=== PATIENT | female | born 1990 | race American Indian/Alaskan Native ===

== ENCOUNTER 2017-11-04 09:53 | Emergency (ER) | payer OTHER ==
[2017-11-04] MEDS ORDERED: ZOFRAN ONE (12:16)
[2017-11-04 12:17] LABS: Bilirubin,Urine NEG (Negative); Blood,Urine NEG (Negative); Color,Urine Yellow (Yellow); Mucus,Urine 3+ /HPF
[2017-11-04] MEDS ORDERED: NACL 0.9% 1000 ML 1,000 ML IV ONE ×2 (12:17→12:27)
[2017-11-04 12:18] LABS: HCG Qualitative,Urine Positive (Negative)
[2017-11-04] MEDS ORDERED: ZOFRAN IV ONE (12:18)
[2017-11-04] MEDS ORDERED: TYLENOL PO ONE (12:25)
[2017-11-04] MEDS ORDERED: PEPCID IV ONE (12:25)
--- NOTE | 2017-11-04 12:26 | Emergency Department Report ---
ED Female HPI - General Chief complaint: Abdominal Pain Stated complaint: THROWING UP/STOMACH PAIN Time Seen by Provider: 11/04/17 12:17 Source: patient, RN notes reviewed Mode of arrival: Ambulatory Limitations: No Limitations - History of Present Illness Initial comments: This is a 27-year-old female who is unknown to this provider previously. She is 3, para 1, status post elective termination of . She reports her last menstrual period is September 12. She initially did not know she was . She presents to the ER with a complaint of initially painless nonbloody, nonbilious emesis. She thinks that in the past day and a half she is vomited 20 times. She has abdominal wall pain from vomiting. The pain is achy, crampy , sharp, increases with palpation and decreases with rest. She denies vaginal discharge and urinary symptoms. She thinks that she is lost some weight unintentionally. MD Complaint: pelvic pain, other Severity: mild Quality: cramping Consistency: constant Improves with: other (rest) Worsens with: movement Are you Now?: Yes Associated Symptoms: abdominal pain, nausea/vomiting, loss of appetite, weakness. denies: vaginal discharge, vaginal bleeding, fever/chills, headaches , dysuria, hematuria, rash, seizure, shortness of breath, syncope - Related Data Sexually active: Yes Previous Rx's Medication Instructions Recorded Last Taken Type Doxylamine Succinate/Vit B6 1 each PO QHS PRN #30 tablet. 11/04/17 Unknown Rx [Lani Mantilla 10-10 mg Tablet] Mili Root [Mili] 250 mg PO QID PRN #30 capsule 11/04/17 Unknown Rx Ondansetron [Zofran Odt] 4 mg PO Q8HR PRN #20 tab.rapdis 11/04/17 Unknown Rx Vit Calc,Iron,Folic 1 each PO QDAY #30 tablet 11/04/17 Unknown Rx [ Vitamins] Allergies Allergy/AdvReac Type Severity Reaction Status Date / Time No Known Allergies Allergy Verified 11/04/17 10:36 ED Review of Systems ROS: Stated complaint: THROWING UP/STOMACH PAIN Other details as noted in HPI Constitutional: malaise Eyes: denies: eye discharge ENT: denies: epistaxis Respiratory: denies: cough Cardiovascular: denies: chest pain Gastrointestinal: abdominal pain, nausea, vomiting Genitourinary: denies: dysuria Musculoskeletal: arthralgia Neurological: weakness Psychiatric: anxiety ED Past Medical Hx - Past Medical History Previous Medical History?: No - Surgical History Past Surgical History?: No - Social History Smoking Status: Never Smoker Substance Use Type: None - Medications Home Medications: Home Medications Medication Instructions Recorded Confirmed Last Taken Type Doxylamine Succinate/Vit B6 1 each PO QHS PRN #30 tablet.dr 11/04/17 Unknown Rx [Diclegis Dr 10-10 mg Tablet] Mili Root [Mili] 250 mg PO QID PRN #30 capsule 11/04/17 Unknown Rx Ondansetron [Zofran Odt] 4 mg PO Q8HR PRN #20 tab.rapdis 11/04/17 Unknown Rx Vit Calc,Iron,Folic 1 each PO QDAY #30 tablet 11/04/17 Unknown Rx [ Vitamins] ED Physical Exam - General Limitations: No Limitations General appearance: alert, anxious - Head Head exam: Present: atraumatic, normocephalic - Eye Eye exam: Present: normal appearance, EOMI. Absent: nystagmus - ENT ENT exam: Present: normal exam, normal orophraynx, mucous membranes moist, normal external ear exam - Neck Neck exam: Present: normal inspection, full ROM. Absent: tenderness, meningismus - Respiratory Respiratory exam: Present: normal lung sounds bilaterally. Absent: respiratory distress - Cardiovascular Cardiovascular Exam: Present: regular rate, normal rhythm, normal heart sounds. Absent: bradycardia, tachycardia, irregular rhythm, systolic murmur, diastolic murmur, rubs, gallop - GI/Abdominal GI/Abdominal exam: Present: soft, normal bowel sounds. Absent: distended, tenderness, guarding, rebound, rigid, pulsatile mass - Extremities Exam Extremities exam: Present: normal inspection, full ROM, normal capillary refill , other (2+ pulses noted in the bilateral upper, lower extremities. Compartments soft. No long bony tenderness. The pelvis is stable.). Absent: pedal edema, joint swelling, calf tenderness - Back Exam Back exam: Present: normal inspection, full ROM. Absent: tenderness, CVA tenderness (R), paraspinal tenderness, vertebral tenderness - Neurological Exam Neurological exam: Present: alert, oriented X3, CN II-XII intact, normal gait, other (Extraocular movements intact. Tongue midline. No facial droop. Facial sensation intact to light touch in the V1, V2, V3 distribution bilaterally. 5 and 5 strength in 4 extremities.. Sensation is intact to light touch in 4 extremities.). Absent: motor sensory deficit - Psychiatric Psychiatric exam: Present: anxious - Skin Skin exam: Present: warm, dry, intact, normal color. Absent: rash ED Course Vital Signs 11/04/17 10:36 Temperature 97.7 F Pulse Rate 83 Respiratory 16 Rate Blood Pressure 120/73 O2 Sat by Pulse 97 Oximetry - Reevaluation(s) Reevaluation #1: 11/04/17 13:23 Differential diagnosis, including but not limited to: , nausea and vomiting of , hyperemesis Assessment and plan: 27-year-old female with unopposed nausea and vomiting, found to be . Urinalysis demonstrates ketones. Patient is currently texting on a cellular phone does not actively vomiting. Type and screen is Rh+. HCG is pending. Pelvic ultrasound is pending. Patient will be given IV fluids, pain medication, nausea medication. Reevaluation #2: 11/04/17 14:37 Belly soft on repeat exam. Ultrasound confirms intrauterine . Patient is encouraged to discontinue cannabis consumption and/or cannabis exposure. She will be discharged with nausea medication, vitamins, instructions to follow up with outpatient gynecology. Urinalysis is appreciated , she has no urinary symptoms and no bacteria. She can therefore follow up with outpatient gynecology for this. ED Medical Decision Making - Lab Data Result diagrams: 11/04/17 12:30 11/04/17 12:30 Vital Signs 11/04/17 10:36 Temperature 97.7 F Pulse Rate 83 Respiratory 16 Rate Blood Pressure 120/73 O2 Sat by Pulse 97 Oximetry Temp Pulse Resp BP Pulse Ox 97.7 F 83 16 120/73 97 11/04/17 10:36 11/04/17 10:36 11/04/17 10:36 11/04/17 10:36 11/04/17 10:36 Labs 11/04/17 11/04/17 11/04/17 12:26 12:30 12:30 WBC 10.9 RBC 4.57 Hgb 12.7 Hct 39.0 MCV 86 MCH 28 MCHC 33 RDW 14.7 Plt Count 300 Sodium 137 Potassium 3.7 Chloride 95.6 L Carbon Dioxide 23 Anion Gap 22 BUN 9 Creatinine 0.6 L Estimated GFR > 60 BUN/Creatinine Ratio 15 Glucose 88 Calcium 9.9 Magnesium 1.90 Total Creatine Kinase 253 H Urine Color Urine Turbidity Urine pH Ur Specific [place] Urine Protein Urine Glucose (UA) Urine Ketones Urine Blood Urine Nitrite Urine Bilirubin Urine Urobilinogen Ur Leukocyte Esterase Urine WBC (Auto) Urine RBC (Auto) U Epithel Cells (Auto) Urine Mucus Urine HCG, Qual Blood Type O POSITIVE Antibody Screen Negative 11/04/17 Unknown WBC RBC Hgb Hct MCV MCH MCHC RDW Plt Count Sodium Potassium Chloride Carbon Dioxide Anion Gap BUN Creatinine Estimated GFR BUN/Creatinine Ratio Glucose Calcium Magnesium Total Creatine Kinase Urine Color Yellow Urine Turbidity Clear Urine pH 6.0 Ur Specific [place] 1.029 Urine Protein 100 mg/dl Urine Glucose (UA) Neg Urine Ketones 80 Urine Blood Neg Urine Nitrite Neg Urine Bilirubin Neg Urine Urobilinogen 2.0 Ur Leukocyte Esterase Mod Urine WBC (Auto) 60.0 H Urine RBC (Auto) 17.0 U Epithel Cells (Auto) 4.0 Urine Mucus 3+ Urine HCG, Qual Positive A Blood Type Antibody Screen - Radiology Data Radiology results: pending Critical care attestation.: If time is entered above; I have spent that time in minutes in the direct care of this critically ill patient, excluding procedure time. ED Disposition Clinical Impression: Nausea and vomiting during Disposition: DC-01 TO HOME OR SELFCARE Is pt being admited?: No Does the pt Need Aspirin: No Condition: Stable Instructions: Hyperemesis Gravidarum (ED) Additional Instructions: Urine culture was ordered today. Follow-up with a staff therapist within the next 5-7 days to initiate outpatient care. Have a staff therapist contact the medical records department to obtain culture results. Urine screening indicated the presence of marijuana metabolites. If patient is consuming marijuana, patient should stop, as this may be dangerous/harmful to the as well as the patient. Patient should avoid exposure to all smoke products first and second hand. Patient should avoid Motrin, ibuprofen, Naprosyn, Aleve, and says, heavy, spicy foods. Take the medications as needed/ directed. For nausea, patient should start with the diclegis, then mili, the zofran if still nauseous. Symptoms of nausea and vomiting during will likely persist during most of the . Please return to the ER right away with new pain, worsened pain, migration of pain, fevers, chills, lethargy, irritability, projectile vomiting, change in mental status, confusion, inability to tolerate liquid feeds. Referrals: PRIMARY CARE, [Primary Care Provider] - 3-5 Days [facility] [Provider Group] - 3-5 Days [facility] [Provider Group] - 3-5 Days [facility] [Provider Group] - 3-5 Days
[2017-11-04 12:46] LABS: Hemoglobin 12.7 gm/dl (10.1-14.3); Mean Corpuscular HGB Conc 33 % (30-34); Mean Corpuscular Hemoglobin 28 pg (28-32); Mean Corpuscular Volume 86 fl (79-97); Platelet Count 300 K/mm3 (140-440); Red Blood Count 4.57 M/mm3 (3.65-5.03); Red Cell Distribution Width 14.7 % (13.2-15.2)
[2017-11-04 12:52] LABS: BUN/Creatinine Ratio 15; Blood Urea Nitrogen 9 mg/dL (7-17); Calcium 9.9 mg/dL (8.4-10.2); Hemolysis Index 40
[2017-11-04] MEDS ORDERED: D5/0.45NS 1,000 ML IV SCH (13:00)
[2017-11-04 13:30] LABS: Amphetamine Screen,Urine PRESUMPTIVE NEGATIVE; Benzodiazepines Screen,Urine PRESUMPTIVE NEGATIVE; Cocaine Screen,Urine PRESUMPTIVE NEGATIVE; Methadone Screen,Urine PRESUMPTIVE NEGATIVE; Opiate Screen,Urine PRESUMPTIVE NEGATIVE
[2017-11-04 13:43] LABS: Cannabinoid Screen,Urine PRESUMPTIVE POSITIVE
[2017-11-04 14:42] VITALS: BP 121/57
--- NOTE | 2017-11-04 15:21 | Ultrasound Report ---
Pelvic and transvaginal sonography: History: , abdominal pain nausea and vomiting. Findings: Uterus measures 10.1 x 7.5 cm. There is a single intrauterine gestation. CRL fetus is 1.1 mm corresponding to 7 weeks and one day of gestation. heart rate 140 per minute. Right ovary 2.4 x 2.1 x 2.8 cm corpus luteal cyst of the right ovary measures 2.2 cm. Left ovary 2.1 x 1.5-1.2 cm. No mass. Impression: Single viable intrauterine gestation. Cyst right ovary.
== END 2017-11-04 15:40 | disposition home or self-care (01) ==
LOC: ED 09:53
DX: O26.891 Other specified pregnancy related conditions, first trimester (principal); O21.9 Vomiting of pregnancy, unspecified; R11.0 Nausea
CPT/HCPCS: 36415; 76801; 76817; 80048; 80307; 81001; 81025; 82550; 83735; 84702; 85027; 86850; 86900; 86901; 87086; 96361; 96374; 96375; 99284; J2405; J7030